=== PATIENT | female | born 1990 ===

== ENCOUNTER 2023-11-03 11:10 | Outpatient (CLI) | payer OTHER | END 2023-11-03 11:11 | disposition home or self-care (01) | LOC: PRENATAL 11:10 | PROVIDERS: ATTEND Obstetrics & Gynecology Maternal & Fetal Medicine | DX: O35.9XX0 Maternal care for (suspected) fetal abnormality and damage, unspecified, not applicable or unspecified (principal); O35.3XX0 Maternal care for (suspected) damage to fetus from viral disease in mother, not applicable or unspecified; O44.02 Complete placenta previa NOS or without hemorrhage, second trimester; O30.002 Twin pregnancy, unspecified number of placenta and unspecified number of amniotic sacs, second trimester; Z3A.20 20 weeks gestation of pregnancy ==

== ENCOUNTER 2023-12-26 10:00 | Outpatient (CLI) | payer OTHER | END 2023-12-26 10:02 | disposition home or self-care (01) | LOC: PRENATAL 10:00 | PROVIDERS: ATTEND Obstetrics & Gynecology Maternal & Fetal Medicine | DX: O26.849 Uterine size-date discrepancy, unspecified trimester (principal); O30.90 Multiple gestation, unspecified, unspecified trimester; O99.019 Anemia complicating pregnancy, unspecified trimester; O24.419 Gestational diabetes mellitus in pregnancy, unspecified control; Z3A.28 28 weeks gestation of pregnancy ==

== ENCOUNTER 2024-01-25 13:46 | Outpatient (CLI) | payer OTHER | END 2024-01-25 13:49 | disposition home or self-care (01) | LOC: PRENATAL 13:46 | PROVIDERS: ATTEND Obstetrics & Gynecology Maternal & Fetal Medicine | DX: O26.849 Uterine size-date discrepancy, unspecified trimester (principal); O36.8199 Decreased fetal movements, unspecified trimester, other fetus; O24.419 Gestational diabetes mellitus in pregnancy, unspecified control; O99.019 Anemia complicating pregnancy, unspecified trimester; O30.90 Multiple gestation, unspecified, unspecified trimester; Z3A.32 32 weeks gestation of pregnancy ==